=== PATIENT | male | born 1950 | race Caucasian/White ===

== ENCOUNTER 2021-01-10 16:34 | Emergency (ER) | payer BC ==
[~2021-01-10] VITALS: Ht 193 cm; Wt 86.2 kg
[~2021-01-10 16:34] MED LIST: BUPR75; DEPRESSION MED; HYDACE5325 PO; OXYACE10 PO; SIMV10
[2021-01-10] MEDS ORDERED: CEPH500 PO (19:43)
== END 2021-01-10 19:20 | disposition home or self-care (01) ==
LOC: ER 16:34
DX: S62.522B Displaced fracture of distal phalanx of left thumb, initial encounter for open fracture (principal); Z23 Encounter for immunization; W22.8XXA Striking against or struck by other objects, initial encounter
CPT/HCPCS: 12001; 73140; 90471; 90714; 99283-25

== ENCOUNTER 2022-11-29 13:15 | Day surgery (SDC) | payer OTHER ==
[~2022-11-29] VITALS: Ht 193 cm; Wt 89.7 kg
[~2022-11-29 13:15] MED LIST changes: +CEPH500 PO
--- NOTE | 2022-11-29 13:47 | NUR ---
11/29/22 1347 Son Olmedo CALL LIGHT WITHIN REACH. TETRACAINE IN AT 1343 PLEDGETT IN AT 1345 IN LEFT EYE
== END 2022-11-29 15:01 | disposition home or self-care (01) ==
LOC: ORSCSDS 13:15
PROVIDERS: Ophthalmology
PROC: 08RK3JZ Replacement of Left Lens with Synthetic Substitute, Percutaneous Approach (ICD-10-PCS; principal; 2022-11-29 14:30)
DX: H25.12 Age-related nuclear cataract, left eye (principal); H52.202 Unspecified astigmatism, left eye
CPT/HCPCS: J2001; J2250; J3010; J3301; J7040; V2632

== ENCOUNTER 2022-12-06 13:15 | Day surgery (SDC) | payer OTHER ==
[~2022-12-06] VITALS: Ht 193 cm; Wt 89.2 kg
== END 2022-12-06 15:04 | disposition home or self-care (01) ==
LOC: ORSCSDS 13:15
PROVIDERS: Ophthalmology
PROC: 08DJ3ZZ Extraction of Right Lens, Percutaneous Approach (ICD-10-PCS; principal; 2022-12-06 14:30)
DX: H25.11 Age-related nuclear cataract, right eye (principal); Z96.1 Presence of intraocular lens; H52.201 Unspecified astigmatism, right eye; I10 Essential (primary) hypertension; F17.210 Nicotine dependence, cigarettes, uncomplicated
CPT/HCPCS: J2001; J2250; J3301; J7040; V2632

== ENCOUNTER 2023-11-03 13:00 | Inpatient (IN) | payer OTHER ==
[~2023-11-03] VITALS: Ht 193 cm; Wt 89.4 kg
[2023-11-03] VITALS (30 sets, daily range): BP systolic 71–109; BP diastolic 60–86
[2023-11-03] MEDS ORDERED: Aspirin 325 MG Tab PO ONE (13:15)
[2023-11-03] MEDS ORDERED: Nitroglycerin 0.4 MG SUBL SL PRN (13:15)
[2023-11-03 13:22] LABS: BASOPHILS ABSOLUTE AUTO 0.07 K/mm3 (0.00-0.23); BASOPHILS PERCENT AUTO 1 % (0-2); EOSINOPHILS ABSOLUTE AUTO 0.11 K/mm3 (0.00-0.68); EOSINOPHILS PERCENT AUTO 1 % (0-6); Hematocrit 47.2 % (37.0-53.0); Hemoglobin 16.4 g/dL (13.5-17.5); IMMATURE GRAN ABSOLUTE AUTO 0.03 K/mm3 (0.00-0.10); IMMATURE GRAN PERCENT AUTO 0 % (0-1); LYMPHOCYTES ABSOLUTE AUTO 4.09 K/mm3 (0.84-5.20); LYMPHOCYTES PERCENT AUTO 52 % (21-46); MONOCYTES ABSOLUTE AUTO 0.53 K/mm3 (0.16-1.47); MONOCYTES PERCENT AUTO 7 % (4-13); Mean Corpuscular HGB 31.8 pg (26.0-34.0); Mean Corpuscular HGB Conc 34.7 g/dL (31.5-36.5); Mean Corpuscular Volume 92 fL (80-100); Mean Platelet Volume 9.5 fL (9.1-12.4); NEUTROPHILS ABSOLUTE AUTO 2.97 K/mm3 (1.96-9.15); NEUTROPHILS PERCENT AUTO 38 % (41-73); Platelet Count 195 K/mm3 (150-400); RDW Coefficient Variation 13.2 % (11.7-14.2); RDW Standard Deviation 44.6 fL (35.1-46.3); Red Blood Cell Count 5.15 M/mm3 (4.30-5.90)
[2023-11-03] MEDS ORDERED: propofoL 100 ML IV ONE (13:28)
[2023-11-03 13:38] LABS: Albumin, Blood 3.8 g/dL (3.4-5.0); Albumin/Globulin Ratio 0.9 (0.8-1.8); Bilirubin, Total 0.6 mg/dL (0.1-1.0); Bun/Creatinine Ratio 10.1 (12.0-20.0); Calcium, Blood 9.6 mg/dL (8.5-10.1); Creatinine, Blood 1.29 mg/dL (0.60-1.20); Globulin, Blood 4.3 g/dL (2.2-4.0); Total Protein, Blood 8.1 g/dL (6.4-8.2)
[2023-11-03 13:50] LABS: Calcium, Ionized (POC) 1.06 mmol/L (1.10-1.46); Chloride (POC) 102 mmol/L (98-108); Creatinine (POC) 1.6 mg/dL (0.8-1.3); Glucose (ISTAT POC) 162 mg/dL (70-99); Potassium (POC) 3.8 mmol/L (3.5-5.5); Sodium (POC) 137 mmol/L (135-148); Total CO2 (POC) 22 mmol/L (21-32)
[2023-11-03] MEDS ORDERED: Aspirin 300 MG Supp PR ONE (14:20)
[2023-11-03 14:37] LABS: International Normalized Ratio 1.07; Prothrombin Time Results 11.2 Sec (9.7-11.5)
[2023-11-03] MEDS ORDERED: FLU VACC QS2023-24(6MOS UP)/PF 60 MCG/0.5 ML SYRINGE IM SCH (15:05)
[2023-11-03] MEDS ORDERED: Albuterol 2.5 MG/3 ML VIAL INH PRN (15:05)
[2023-11-03] MEDS ORDERED: Acetaminophen 650 MG Supp PR PRN (15:10)
[2023-11-03] MEDS ORDERED: Ipratropium/Albuterol SulF 2.5-0.5MG/3 ML Amp INH PRN (15:10)
[2023-11-03] MEDS ORDERED: NS 1,000 ML IV ONE ×2 (15:13→15:44)
[2023-11-03] MEDS ORDERED: propofoL 100 ML IV SCH (15:15)
[2023-11-03] MEDS ORDERED: Midazolam HCL 1 MG/ML 5MLVIAL ONE (15:40)
[2023-11-03] MEDS ORDERED: propofoL 0 ML IV ONE (15:41)
[2023-11-03] MEDS ORDERED: Furosemide 10 MG/ML 4ML Vial IV ONE (16:00)
[2023-11-03] MEDS ORDERED: NS 1,000 ML IV SCH (17:25)
[2023-11-03] MEDS ORDERED: Heparin Sodium,Porcine/0.5 NS 500 ML IV SCH (17:35)
[2023-11-03 17:40] LABS: U Amphetamine Screen Not Detected; U Barbituate Screen Not Detected; U Benzodiazapine Screen Not Detected; U Buprenorphine Screen Not Detected; U Cannabinoids Screen DETECTED; U Cocaine Screen Not Detected; U Methadone Screen Not Detected; U Methamphetamine Screen Not Detected; U Opiates Screen Not Detected; U Oxycodone Screen Not Detected; U Phencyclidine Screen Not Detected
[2023-11-03] MEDS ORDERED: CefTRIAXone Sodium 1,000 MG in NS 50 ML IV SCH (18:30)
[2023-11-03 18:44] LABS: Source, Urine Foley catheter
[2023-11-03 18:47] LABS: Bilirubin, Urine Neg (Neg); Blood, Urine 2+ (Neg); Color, Urine Amber (P-Yellow); Glucose Qualitative, Urine Neg (Neg); Ketones, Urine Neg (Neg); Leukocyte Esterase, Urine 1+ (Neg); Nitrite, Urine Neg (Neg); Protein, Urine 1+ (Neg); Specific Gravity, Urine 1.025 (1.003-1.022); Urobilinogen, Urine NORM (Normal)
[2023-11-03 18:57] LABS: Appearance, Urine Hazy (Clear)
[2023-11-03 18:58] LABS: Mucus Light (0-Heavy)
[2023-11-03 19:00] LABS: Bacteria Many /hpf; Squamous Epithelial Cells Rare /hpf (Few)
[2023-11-03] MEDS ORDERED: Heparin Sodium,Porcine 5,000 UNIT/0.5 ML SDV SC ONE (19:01)
[2023-11-03] MEDS ORDERED: Magnesium Sulfate 500 MG / ML 2ML Vial IV ONE (19:01)
[2023-11-03] MEDS ORDERED: Midazolam HCl 1MG / ML 2ML Vial IM ONE (19:01)
[2023-11-03] MEDS ORDERED: Etomidate 2MG / ML 10ML Vial IV ONE (19:01)
[2023-11-03] MEDS ORDERED: SuccINYLCHOLINE Chloride 100 MG/5 ML 5MLSYR IV ONE (19:01)
[2023-11-03] MEDS ORDERED: Propofol 10mg/ml 20 ml Vial (Procedural) IV ONE (19:01)
[2023-11-03] MEDS ORDERED: EPINEPhrine HCl 0.1 MG/ML 10ML SYR IV ONE (19:01)
[2023-11-03 19:02] LABS: Hyaline Casts 0-2 /lpf (0-2); Renal Epithelial Rare /hpf (0-Rare); Transitional Epithelial Cells Rare /hpf (0-Rare)
[2023-11-03] MEDS ORDERED: NS 250 ML IV PRN (19:35)
[2023-11-03 21:52] LABS: Albumin/Globulin Ratio 0.8 (0.8-1.8); Bilirubin, Total 0.5 mg/dL (0.1-1.0); Bun/Creatinine Ratio 11.5 (12.0-20.0); Calcium, Blood 8.2 mg/dL (8.5-10.1); Creatinine, Blood 1.22 mg/dL (0.60-1.20); Globulin, Blood 3.7 g/dL (2.2-4.0); Magnesium, Blood 2.9 mg/dL (1.6-2.4); Potassium, Blood 4.3 mmol/L (3.5-5.5); Total Protein, Blood 6.7 g/dL (6.4-8.2)
[2023-11-04] VITALS (60 sets, daily range): BP systolic 74–104; BP diastolic 58–79
[2023-11-04] MEDS ORDERED: Clarify Drug Order XX ONE (03:00)
[2023-11-04 04:43] LABS: BASOPHILS ABSOLUTE AUTO 0.03 K/mm3 (0.00-0.23); BASOPHILS PERCENT AUTO 0 % (0-2); EOSINOPHILS ABSOLUTE AUTO 0.01 K/mm3 (0.00-0.68); EOSINOPHILS PERCENT AUTO 0 % (0-6); Hematocrit 46.7 % (37.0-53.0); Hemoglobin 15.9 g/dL (13.5-17.5); IMMATURE GRAN ABSOLUTE AUTO 0.04 K/mm3 (0.00-0.10); IMMATURE GRAN PERCENT AUTO 0 % (0-1); LYMPHOCYTES ABSOLUTE AUTO 1.83 K/mm3 (0.84-5.20); LYMPHOCYTES PERCENT AUTO 16 % (21-46); MONOCYTES ABSOLUTE AUTO 0.57 K/mm3 (0.16-1.47); MONOCYTES PERCENT AUTO 5 % (4-13); Mean Corpuscular HGB 31.7 pg (26.0-34.0); Mean Corpuscular Volume 93 fL (80-100); Mean Platelet Volume 9.7 fL (9.1-12.4); NEUTROPHILS ABSOLUTE AUTO 9.06 K/mm3 (1.96-9.15); NEUTROPHILS PERCENT AUTO 79 % (41-73); Platelet Count 167 K/mm3 (150-400); RDW Coefficient Variation 13.9 % (11.7-14.2); RDW Standard Deviation 47.7 fL (35.1-46.3); Red Blood Cell Count 5.01 M/mm3 (4.30-5.90); White Blood Cell Count 11.54 K/mm3 (4.00-11.30)
[2023-11-04 05:47] LABS: Albumin, Blood 3.1 g/dL (3.4-5.0); Albumin/Globulin Ratio 0.8 (0.8-1.8); Bilirubin, Total 0.7 mg/dL (0.1-1.0); Bun/Creatinine Ratio 13.8 (12.0-20.0); Calcium, Blood 8.4 mg/dL (8.5-10.1); Creatinine, Blood 1.23 mg/dL (0.60-1.20); Globulin, Blood 3.8 g/dL (2.2-4.0); Magnesium, Blood 2.6 mg/dL (1.6-2.4); Potassium, Blood 4.5 mmol/L (3.5-5.5); Total Protein, Blood 6.9 g/dL (6.4-8.2)
[2023-11-04] MEDS ORDERED: Pantoprazole Sodium 40 MG Injection IV SCH (06:00)
[2023-11-04] MEDS ORDERED: Aspirin 81 MG Chew PO SCH (09:00)
[2023-11-04] MEDS ORDERED: Dose Adjust by Pharmacy XX STA (09:27)
[2023-11-04] MEDS ORDERED: Verapamil HCL 2.5 MG/ML 2ML Injection ONE (11:34)
[2023-11-04] MEDS ORDERED: Nitroglycerin 2 MG/20 ML BTL ONE (11:35)
[2023-11-04] MEDS ORDERED: Heparin Sodium 1000 Units/ML 10ML MDV ONE ×3 (11:35→13:10)
[2023-11-04] MEDS ORDERED: NS 250 ML IV ONE (11:35)
[2023-11-04] MEDS ORDERED: NS 1,000 ML IV ONE ×2 (11:35→12:25)
[2023-11-04] MEDS ORDERED: NS 500 ML IV ONE (13:10)
[2023-11-04] MEDS ORDERED: Aspirin 325 MG Tab ONE (13:30)
[2023-11-04] MEDS ORDERED: Clopidogrel Bisulfate 300 MG Cap ONE (13:30)
[2023-11-04] MEDS ORDERED: NS 500 ML IV SCH (15:00)
[2023-11-04 15:13] LABS: CHOL/HDL RATIO 4.4; Cholesterol 179 mg/dL (50-200); HDL Cholesterol 41 mg/dL (>39); LDL/HDL RATIO 2.8; Low Density Lipoprotein Chol 117 mg/dL (0-110); Triglycerides 107 mg/dL (30-160); Very Low Density Lipoprot Chol 21 mg/dL (6-32)
[2023-11-05] VITALS (91 sets, daily range): BP systolic 71–100; BP diastolic 58–87
[2023-11-05] MEDS ORDERED: Hydrogen Peroxide 1.5 % Solution MT SCH ×2
[2023-11-05 04:21] LABS: Hematocrit 41.6 % (37.0-53.0); Hemoglobin 14.6 g/dL (13.5-17.5); Mean Corpuscular HGB 31.7 pg (26.0-34.0); Mean Corpuscular HGB Conc 35.1 g/dL (31.5-36.5); Mean Corpuscular Volume 90 fL (80-100); Mean Platelet Volume 10.6 fL (9.1-12.4); NRBC ABSOLUTE 0.02 K/mm3 (0.00-0.02); NRBC Auto 0.1 /100 WBC (0.0-0.2); Platelet Count 143 K/mm3 (150-400); RDW Coefficient Variation 13.8 % (11.7-14.2); RDW Standard Deviation 46.3 fL (35.1-46.3); White Blood Cell Count 16.58 K/mm3 (4.00-11.30)
[2023-11-05 04:33] LABS: Bun/Creatinine Ratio 17.3 (12.0-20.0); Calcium, Blood 8.5 mg/dL (8.5-10.1); Creatinine, Blood 1.1 mg/dL (0.60-1.20); Magnesium, Blood 2.3 mg/dL (1.6-2.4); Potassium, Blood 4.3 mmol/L (3.5-5.5)
[2023-11-05] MEDS ORDERED: Enoxaparin 40 MG/0.4 ML SYR SC SCH (08:00)
[2023-11-05] MEDS ORDERED: Aspirin 81 MG Chew PO SCH (09:00)
[2023-11-05] MEDS ORDERED: Clopidogrel Bisulfate 75 MG Tab PO SCH (09:00)
[2023-11-05] MEDS ORDERED: Atorvastatin 40 MG Tab PO SCH (09:00)
[2023-11-05] MEDS ORDERED: Potassium Phosphate Dibasic 30 MM in Dextrose 5% 500 ML IV STA (10:21)
[2023-11-05] MEDS ORDERED: Acetaminophen 325 MG TABLET PO PRN (16:30)
[2023-11-05] MEDS ORDERED: Furosemide 10 MG / ML 2ML Vial IV SCH (18:00)
[2023-11-06] VITALS (85 sets, daily range): BP systolic 72–92; BP diastolic 61–76
[2023-11-06 04:34] LABS: Hemoglobin 13.3 g/dL (13.5-17.5); Mean Corpuscular HGB 31.7 pg (26.0-34.0); Mean Corpuscular Volume 91 fL (80-100); Mean Platelet Volume 10.5 fL (9.1-12.4); Platelet Count 118 K/mm3 (150-400); RDW Coefficient Variation 13.9 % (11.7-14.2); RDW Standard Deviation 45.9 fL (35.1-46.3); White Blood Cell Count 16.84 K/mm3 (4.00-11.30)
[2023-11-06 04:48] LABS: Bun/Creatinine Ratio 18.1 (12.0-20.0); Calcium, Blood 8.5 mg/dL (8.5-10.1); Creatinine, Blood 1.27 mg/dL (0.60-1.20); Phosphorus, Blood 2.5 mg/dL (2.5-4.9); Potassium, Blood 4.3 mmol/L (3.5-5.5)
[2023-11-06] MEDS ORDERED: Metoprolol Succinate 25 MG TABCR PO SCH (09:00)
[2023-11-07] VITALS (29 sets, daily range): BP systolic 54–92; BP diastolic 38–78
[2023-11-07 05:59] LABS: Hematocrit 38.5 % (37.0-53.0); Mean Corpuscular HGB 31.4 pg (26.0-34.0); Mean Corpuscular HGB Conc 33.8 g/dL (31.5-36.5); Mean Corpuscular Volume 93 fL (80-100); Mean Platelet Volume 11.1 fL (9.1-12.4); NRBC ABSOLUTE 0.02 K/mm3 (0.00-0.02); NRBC Auto 0.2 /100 WBC (0.0-0.2); Platelet Count 109 K/mm3 (150-400); RDW Standard Deviation 47.5 fL (35.1-46.3); Red Blood Cell Count 4.14 M/mm3 (4.30-5.90); White Blood Cell Count 12.67 K/mm3 (4.00-11.30)
[2023-11-07 06:41] LABS: Albumin, Blood 2.3 g/dL (3.4-5.0); Albumin/Globulin Ratio 0.6 (0.8-1.8); Bilirubin, Total 1.6 mg/dL (0.1-1.0); Bun/Creatinine Ratio 25.8 (12.0-20.0); Calcium, Blood 8.4 mg/dL (8.5-10.1); Creatinine, Blood 1.32 mg/dL (0.60-1.20); Globulin, Blood 3.9 g/dL (2.2-4.0); Total Protein, Blood 6.2 g/dL (6.4-8.2)
[2023-11-07] MEDS ORDERED: Furosemide 20 MG Tab PO SCH (09:00)
[2023-11-07] MEDS ORDERED: Lisinopril 5 MG Tab PO SCH (09:00)
[2023-11-07] MEDS ORDERED: Polyethylene Glycol 3350 17 gm PO SCH (10:00)
[2023-11-08] VITALS (13 sets, daily range): BP systolic 74–94; BP diastolic 59–79
[2023-11-08 05:12] LABS: Hematocrit 37.8 % (37.0-53.0); Hemoglobin 12.8 g/dL (13.5-17.5); Mean Corpuscular HGB 31.4 pg (26.0-34.0); Mean Corpuscular HGB Conc 33.9 g/dL (31.5-36.5); Mean Corpuscular Volume 93 fL (80-100); Mean Platelet Volume 10.2 fL (9.1-12.4); NRBC ABSOLUTE 0.02 K/mm3 (0.00-0.02); NRBC Auto 0.2 /100 WBC (0.0-0.2); Platelet Count 110 K/mm3 (150-400); RDW Coefficient Variation 13.8 % (11.7-14.2); RDW Standard Deviation 46.8 fL (35.1-46.3); Red Blood Cell Count 4.07 M/mm3 (4.30-5.90); White Blood Cell Count 10.47 K/mm3 (4.00-11.30)
[2023-11-08 05:41] LABS: Albumin, Blood 2.2 g/dL (3.4-5.0); Albumin/Globulin Ratio 0.6 (0.8-1.8); Bilirubin, Total 1.4 mg/dL (0.1-1.0); Bun/Creatinine Ratio 27.3 (12.0-20.0); Calcium, Blood 8.3 mg/dL (8.5-10.1); Creatinine, Blood 1.28 mg/dL (0.60-1.20); Globulin, Blood 3.9 g/dL (2.2-4.0); Potassium, Blood 3.9 mmol/L (3.5-5.5); Total Protein, Blood 6.1 g/dL (6.4-8.2)
[2023-11-09] VITALS: BP 88/73
[2023-11-09 04:00] VITALS: BP 83/71
[2023-11-09 05:11] LABS: Bun/Creatinine Ratio 32.2 (12.0-20.0); Calcium, Blood 8.1 mg/dL (8.5-10.1); Creatinine, Blood 1.15 mg/dL (0.60-1.20); Potassium, Blood 3.9 mmol/L (3.5-5.5)
[2023-11-09 07:37] VITALS: BP 87/76
[2023-11-09 11:55] VITALS: BP 84/70
[2023-11-09 16:02] VITALS: BP 85/66
[2023-11-09 19:37] VITALS: BP 94/70
[2023-11-10 00:10] VITALS: BP 77/68
[2023-11-10 03:42] VITALS: BP 86/66
[2023-11-10 05:06] LABS: Albumin, Blood 2.3 g/dL (3.4-5.0); Albumin/Globulin Ratio 0.5 (0.8-1.8); Bilirubin, Total 1.5 mg/dL (0.1-1.0); Bun/Creatinine Ratio 29.8 (12.0-20.0); Calcium, Blood 8.4 mg/dL (8.5-10.1); Creatinine, Blood 1.14 mg/dL (0.60-1.20); Globulin, Blood 4.3 g/dL (2.2-4.0); Total Protein, Blood 6.6 g/dL (6.4-8.2)
[2023-11-10 07:08] VITALS: BP 92/74
[2023-11-10 10:39] VITALS: BP 128/106
[2023-11-10] MEDS ORDERED: ASPI81CH PO (12:31)
[2023-11-10] MEDS ORDERED: ATORVASTATIN CA80 M1 PO (12:32)
[2023-11-10] MEDS ORDERED: CLOP75 PO (12:33)
[2023-11-10] MEDS ORDERED: LISI5 PO (12:34)
[2023-11-10] MEDS ORDERED: FURO20 PO (12:34)
[2023-11-10] MEDS ORDERED: METO25ER PO (12:35)
[2023-11-10] MEDS ORDERED: MIRALAX17 GM PO (12:36)
[2023-11-10] MEDS ORDERED: NITR.4SL SL (12:37)
[2023-11-10 16:00] VITALS: BP 140/84
== END 2023-11-10 13:56 | disposition home health service (06) | DRG 321 ==
LOC: ER 13:00 → ICUE 15:03 → PCU 11-08 11:38
PROVIDERS: Emergency Medicine; Internal Medicine; Internal Medicine Critical Care Medicine; ADMIT Student in an Organized Health Care Education/Training Program
PROC: 0BH17EZ Insertion of Endotracheal Airway into Trachea, Via Natural or Artificial Opening (ICD-10-PCS; 2023-11-03)
PROC: 5A12012 Performance of Cardiac Output, Single, Manual (ICD-10-PCS; 2023-11-03)
PROC: 5A1945Z Respiratory Ventilation, 24-96 Consecutive Hours (ICD-10-PCS; 2023-11-03)
PROC: 5A2204Z Restoration of Cardiac Rhythm, Single (ICD-10-PCS; 2023-11-03)
PROC: 3E033XZ Introduction of Vasopressor into Peripheral Vein, Percutaneous Approach (ICD-10-PCS; 2023-11-03)
PROC: 3E043XZ Introduction of Vasopressor into Central Vein, Percutaneous Approach (ICD-10-PCS; 2023-11-03)
PROC: 02HV33Z Insertion of Infusion Device into Superior Vena Cava, Percutaneous Approach (ICD-10-PCS; 2023-11-03)
PROC: 0T9B70Z Drainage of Bladder with Drainage Device, Via Natural or Artificial Opening (ICD-10-PCS; 2023-11-03)
PROC: 027034Z Dilation of Coronary Artery, One Artery with Drug-eluting Intraluminal Device, Percutaneous Approach (ICD-10-PCS; principal; 2023-11-04)
PROC: B2111ZZ Fluoroscopy of Multiple Coronary Arteries using Low Osmolar Contrast (ICD-10-PCS; 2023-11-04)
DX: I24.9 Acute ischemic heart disease, unspecified (principal); I46.2 Cardiac arrest due to underlying cardiac condition; I49.01 Ventricular fibrillation; R57.0 Cardiogenic shock; I50.21 Acute systolic (congestive) heart failure; J96.01 Acute respiratory failure with hypoxia; J69.0 Pneumonitis due to inhalation of food and vomit; I47.20 Ventricular tachycardia, unspecified; M96.A1 Fracture of sternum associated with chest compression and cardiopulmonary resuscitation; M96.A3 Multiple fractures of ribs associated with chest compression and cardiopulmonary resuscitation; I25.10 Atherosclerotic heart disease of native coronary artery without angina pectoris; Z66 Do not resuscitate; I25.5 Ischemic cardiomyopathy; F12.90 Cannabis use, unspecified, uncomplicated; F32.A Depression, unspecified; F17.200 Nicotine dependence, unspecified, uncomplicated; I25.82 Chronic total occlusion of coronary artery; J44.9 Chronic obstructive pulmonary disease, unspecified; E83.39 Other disorders of phosphorus metabolism; Z53.29 Procedure and treatment not carried out because of patient's decision for other reasons
CPT/HCPCS: 31500; 36415; 36569; 51702; 70450; 71045; 71260; 76937; 80047; 80048; 80053; 80061; 81001; 83036; 83735; 83880; 84100; 84145; 84484; 85014; 85025; 85027; 85347; 85520; 85610; 85730; 87086; 92950; 93005; 93010; 93454; 94003; 94640; 94664; 94760; 94761; 94762; 96365-59; 96366-59; 96375-59; 97110; 97116; 97161; 97166; 97530; 97535; 99152; 99153; 99291-25; A9270; C1725; C1751; C1769; C1874; C1887; C1894; C8929; C9113; C9600; J0282; J0330; J0696; J1644; J1650; J1940; J2250; J2704; J3475; J7030; J7040; J7050; J7060; Q9957; Q9967